=== PATIENT | female | born 1935 | race African-American/Black ===

== ENCOUNTER 2019-05-18 08:35 | Outpatient (CLI) | payer MEDICARE ==
--- NOTE | 2019-05-18 10:31 | Fluoroscopy Report ---
BARIUM SWALLOW Indication: 10 YR HISTORY OF DYSPHAGIS. Feeling of something getting stuck in throat. Rule out Zenk er's diverticulum Technique: Single contrast barium technique utilized to evaluate the esophagus. FINDINGS: To begin the exam, swallowing was evaluated in the lateral position under direct fluorosco py. Swallowing was normal. No mucosal irregularity, mass, mass effect, or critical stenosis. No Zenker's diverticulum is appreci ated. There were no abnormal tertiary contractions as seen with dysmotility. No gastroesophageal refl ux. IMPRESSION: Unremarkable exam. Fluoroscopic time: 1.1 minutes Number of fluoroscopic images: 725 Signer Name: Efrain Alva Jr, MD Signed: 05/18/2019 10:27 AM Workstation Name: [id number]
== END 2019-05-18 08:36 | disposition home or self-care (01) ==
LOC: FLUORO 08:35
PROVIDERS: ATTEND Otolaryngology
DX: K22.5 Diverticulum of esophagus, acquired (principal)
CPT/HCPCS: 74220